=== PATIENT | female | born 1965 | race Caucasian/White ===

== ENCOUNTER → 2017-01-22 | Outpatient (CLI) | payer BC, OTHER ==
[~2017-01-22] MED LIST: ADVIN25/60 INH; DICL-201 PO; HYZ/50125 PO; VNTHFA/IN INH
[2017-01-22 15:03] LABS: BLOOD UREA NITROGEN 14 mg/dl (7-18); BUN/CREATININE RATIO 16.9 (10-20); CALCIUM 9.2 mg/dl (8.5-10.1); CARBON DIOXIDE 28 mmol/L (21-32); CHLORIDE 106 mmol/L (98-107); CHOLESTEROL 195 mg/dl (0-200); GLUCOSE 81 mg/dl (70-99); POTASSIUM 4.1 mmol/L (3.5-5.1); SODIUM 139 mmol/L (136-145)
[2017-01-22 15:06] LABS: CHOLESTEROL/HDL RATIO 3.5; HDL CHOLESTEROL 55 mg/dl; LDL CHOLESTEROL CALCULATED 122 mg/dl; TRIGLYCERIDES 92 mg/dl (0-150); VERY LOW DENSITY LIPOPROT CALC 18 mg/dl
== END | disposition home or self-care (01) ==
LOC: C.LABMFLN 08:57
PROVIDERS: ATTEND Family Medicine
DX: I10 Essential (primary) hypertension (principal); E78.00 Pure hypercholesterolemia, unspecified

== ENCOUNTER → 2017-03-18 | Outpatient (CLI) | payer BC ==
--- NOTE | 2017-03-18 17:18 | DIAGNOSTIC IMAGING REPORT ---
LUMBAR SPINE W/O CONTRAST CLINICAL HISTORY: 51 years-old Female presenting with LUMBAR RADICULOPATHY. TECHNIQUE: Multisequence, multiplanar MR imaging of the lumbar spine was performed without the use of intravenous contrast. IV contrast: None. COMPARISON: None. FINDINGS: Localizer images: Unremarkable. Normal lumbar lordosis. Vertebral bodies maintain normal height, alignment, and bone marrow signal intensity. However, there is bone marrow edema in the right pedicle of L5. Minimal fluid within the right L5-S1 facet joint. No significant surrounding inflammatory change. Intervertebral disc spaces well-maintained with normal signal intensity. Minimal disc bulges noted at nearly every level as well as facet arthropathy on the left at L4-5 and on the right at L5-S1. Ligamentum flavum thickening noted at L4-5. Degenerative change results in mild bilateral neural foraminal narrowing at L4-5 and mild right neural foraminal narrowing at L5-S1. No significant spinal canal narrowing. Spinal cord is in good position at the superior endplate of L1. Cauda equina normal in morphology. Paraspinal soft tissues normal. IMPRESSION: 1. Mild degenerative change in the lower lumbar spine results in mild bilateral neural foraminal narrowing at L4-5 and mild right neural foraminal narrowing at L5-S1. 2. Bone marrow edema in the right pedicle at L5 likely related to right L5-S1 facet joint arthropathy. Electronically signed by: Emir Rodriguez M.D. 03/18/2017 5:17 PM Dictated Date/Time: 03/18/2017 5:11 PM
== END | disposition home or self-care (01) ==
LOC: C.MRIBC 08:16
PROVIDERS: ATTEND Physician Assistant Medical
DX: M54.16 Radiculopathy, lumbar region (principal)

== ENCOUNTER → 2017-07-21 | Outpatient (CLI) | payer BC | END | disposition home or self-care (01) | LOC: C.LABMFLN 10:42 | PROVIDERS: ATTEND Physician Assistant | DX: J02.9 Acute pharyngitis, unspecified (principal) ==